=== PATIENT | female | born 1990 | race Asian ===

== ENCOUNTER 2021-03-14 10:40 | Outpatient (CLI) | payer BC, OTHER ==
[~2021-03-14] VITALS: Ht 175.3 cm; Wt 131.5 kg
== END 2021-03-14 20:36 | disposition home or self-care (01) ==
LOC: INF 10:40
PROVIDERS: ATTEND Family Medicine
DX: Z23 Encounter for immunization (principal); U07.1 COVID-19
CPT/HCPCS: 96365; M0244

== ENCOUNTER 2022-03-22 10:06 | Outpatient (CLI) | payer BC | END 2022-03-22 22:11 | disposition home or self-care (01) | LOC: US 10:06 | PROVIDERS: ATTEND Nurse Practitioner Primary Care | DX: L72.3 Sebaceous cyst (principal) ==